=== PATIENT | male | born 1965 ===

== ENCOUNTER 2022-04-04 19:20 | Emergency (ER) | payer SELFPAY ==
[2022-04-04 19:40] VITALS: BP 142/82; PULSE 69; RESP 18; TEMP 36.3; O2SAT 97
--- NOTE | 2022-04-04 20:03 | ED.GENADULT ---
HPI - General Adult General Chief complaint: Back Injury/Pain Stated complaint: Side and back pain Time Seen by Provider: 04/04/22 19:24 Source: patient Mode of arrival: ambulatory Limitations: no limitations History of Present Illness HPI narrative: 56-year-old male coming in today complaining of low back pain for about a month. He was seen in urgent care on the 28 of February with similar symptoms. He states that they did x-rays then which were normal. He states that the pain continues it is worse on the left side than on the right. Activity makes it worse rest makes it better. He denies any nausea vomiting, fevers or chills. He has not been losing weight. He denies any focal neurologic deficits. He has been taking Tylenol and ibuprofen as needed which do help. He also received Flexeril month ago which appear to help as well. His symptoms got worse 2 days ago after he was working on a car. He also complains sometimes of neck pain that comes and goes, bilateral shoulder pain that comes and goes abdominal pain that comes and goes. Nothing is consistent. And again he did have workup for the exact same symptoms a month ago. He has not followed up with his primary care provider. He is requesting another prescription for muscle relaxer today. Related Data Home Medications Medication Instructions Recorded Confirmed aspirin 81 mg tablet,delayed 162 mg PO Q8H PRN 04/04/22 04/04/22 release (Adult Low Dose Aspirin) ibuprofen 200 mg tablet 400 mg PO Q6-8H PRN 04/04/22 04/04/22 Previous Rx's Medication Instructions Recorded cyclobenzaprine 10 mg tablet 10 mg PO Q8H #15 tabs 04/04/22 Allergies Allergy/AdvReac Type Severity Reaction Status Date / Time Penicillins Allergy Intermediate Dizziness Verified 04/04/22 19:38 Review of Systems Status of ROS: Reports: 10 or more systems reviewed and unremarkable except as noted in History and below [facility] Medical History Colitis Diverticulitis H/O back injury Exam Narrative: Exam Narrative: Well-nourished well-developed patient in no acute distress. Alert and oriented. Answers questions appropriately. Mood and affect are appropriate. Thoughts are goal oriented and rational. No tangential or magical thinking noted. Patient speaks in full sentences without needing to catch their breath. HEENT: Normocephalic atraumatic. Pupils are equally round reactive to light. Extraocular muscles are intact. Conjunctivae are moist without any icterus noted. Moist mucous membranes. Posterior pharynx is normal. Neck is soft without any lymphadenopathy or thyromegaly. No masses are appreciated. Cardiovascular: Heart is regular rate and rhythm S1 and S2 are present without any murmurs. Lungs: Clear to auscultation bilaterally no wheezes rhonchi or rales are appreciated. Patient takes deep breaths without any discomfort. Abdomen: Soft and nontender nondistended with normal bowel sounds. No guarding or rebound. No masses or organomegaly appreciated. Extremities: Bilateral lower extremities are without edema. Normal DP and PT pulses. Skin: Well perfused without any obvious rashes. Back: Well appearance. Mild tenderness on the left paraspinal musculature of the lumbar spine. No other abnormalities noted. Strength is 5/5 of the upper and lower extremities. Cranial nerves 3-12 are normal. There is no nystagmus either horizontally or vertically. Gait is normal. Const: Vital Signs, click to edit/add: Vital Signs - 24 hr 04/04/22 19:40 Temperature 97.3 F L Pulse Rate [Left P ulse Oximeter] 69 Respiratory Rate 18 Blood Pressure [Ri ght Upper Arm] 142/82 H Pulse Oximetry 97 Oxygen Delivery Me thod Room Air Course Vital Signs Vital signs: Initial Vital Signs Temperature 97.3 F L 04/04/22 19:40 Temperature Source Temporal Artery Scan 04/04/22 19:40 Pulse Rate 69 04/04/22 19:40 Pulse Rhythm 04/04/22 19:40 Respiratory Rate 18 04/04/22 19:40 Blood Pressure 142/82 H 04/04/22 19:40 Blood Pressure Mean 102 04/04/22 19:40 Blood Pressure Position Semi-Fowlers 04/04/22 19:40 Pulse Oximetry 97 04/04/22 19:40 Oxygen Delivery Method 04/04/22 19:40 Vital Signs Temperature 97.3 F L 04/04/22 19:40 Pulse Rate 69 04/04/22 19:40 Respiratory Rate 18 04/04/22 19:40 Blood Pressure 142/82 H 04/04/22 19:40 Pulse Oximetry 97 04/04/22 19:40 Oxygen Delivery Method 04/04/22 19:40 Temperature 97.3 F L 04/04/22 19:40 Pulse Rate 69 04/04/22 19:40 Respiratory Rate 18 04/04/22 19:40 Blood Pressure 142/82 H 04/04/22 19:40 Pulse Oximetry 97 04/04/22 19:40 Oxygen Delivery Method 04/04/22 19:40 Medical Decision Making MDM Narrative Medical decision making narrative: 56-year-old male with low back pain. We discussed physical therapy, symptomatic treatment reasons for follow-up. We will go ahead and prescribe Flexeril to use as needed. Discussed side effects of this medication. Patient had no other questions. I do recommend he follow up with primary care provider to discuss his many concerns. Medical Records Medical records reviewed: Yes I reviewed the patient's medical records Discharge Plan Discharge Clinical Impression: Low back pain Patient Disposition: Home, Self-Care Condition: Stable Additional Instructions: Follow-up with your primary care provider to discuss your concerns. Okay to continue using ibuprofen/Tylenol as directed and as needed for discomfort. Prescriptions: New cyclobenzaprine 10 mg tablet 10 mg PO Q8H Qty: 15 0RF No Action aspirin [Adult Low Dose Aspirin] 81 mg tablet,delayed release (DR/EC) 162 mg PO Q8H PRN ibuprofen 200 mg tablet 400 mg PO Q6-8H PRN Stand Alone Forms: [employer] Info Instructions
--- OUTSIDE RECORDS SUMMARY | 2022-04-04 20:37 | XMS_ITS | Clinical Summary ---
:1965 Author Organization [employer] [place] [address] Care Team Providers Name Role Phone Pcp, No Primary Care Provider Unavailable Allergies Active Allergy Reactions Severity Noted Date Comments Penicillins Dizziness 02/27/2022 Medications Medication Sig Dispensed Refills Start Date End Date Status cyclobenzaprine Take 0.5-1 30 Tablet 0 02/27/2022 Ac tive (FLEXERIL) 10 mg Tablets (5-10 tabletIndications: Back mg) by mouth pain, unspecified back three times location, unspecified daily. back pain laterality, unspecified chronicity meloxicam (MOBIC) 7.5 Take 1 Tablet 10 Tablet 0 02/28/2022 Active mg tabletIndications: (7.5 mg) by Neck pain mouth once daily. methocarbamoL (ROBAXIN) Take 1 Tablet 21 Tablet 0 02/28/2022 0 03/07/2022 500 mg (500 mg) by tabletIndications: Neck mouth three pain times daily for 7 days. Active Problems Not on file Encounters Date Type Specialty Care Team Description 02/28/2022 Ancillary Procedure 02/28/2022 Ancillary Procedure 02/28/2022 Ancillary Procedure 02/28/2022 Office Visit Ming Samayoa Shoulde r Pain/problem MBBS (Right shoulder pain); Hand Pain/probl em (Right hand pain); Oli t Problem (Bilateral foot pain) 02/27/2022 Office Visit Narinder Torres, Pain (Ri b, back, and PA shoulders) 02/27/2022 Travel from Last 3 Months Social History Tobacco Use Types Packs/Day Years Used Date Never Smoker Smokeless Tobacco: Never Used Sex Assigned at Date Recorded Not on file Obstetrics History Last Filed Vital Signs Vital Sign Reading Time Taken Comments Blood Pressure 107/66 02/28/2022 6:09 PM CDT Pulse 71 02/28/2022 6:09 PM CDT Temperature 36.6 ??C (97.8 ??F) 02/28/2022 6:09 PM CDT Respiratory Rate 16 02/28/2022 6:09 PM CDT Oxygen Saturation 96% 02/28/2022 6:09 PM CDT Inhaled Oxygen Concentration - - Weight - - Height - - Body Mass Index - - Plan of Treatment Health Maintenance Due Date Last Done Comments COVID-19 vaccine series (#1) 1965 Tdap 1974 Depression screening for age 12+ 1975 BMI (ht and wt on same day) for age 18+ 1981 Hepatitis C screening for age 18-79 1981 Tetanus booster 1983 Colonoscopy through age 75 2008 Lipids for age 45-75 2008 Zoster (shingles) series for age 50+ (1 of 2) 2013 Influenza for age 50-64 02/12/2022 Procedures Procedure Name Priority Date/Time Associated Diagnosis Comme nts XR ABDOMEN 2 VIEW STAT 02/28/2022 7:02 PM Abdominal pain, R esults for this FLAT AND UPRIGHT OR CDT unspecified procedur e are in DECUBITUS abdominal location the resul ts section. XR SPINE CERVICAL 3 STAT 02/28/2022 6:56 PM Neck pain Re sults for this VIEWS CDT procedure are i n the results section. XR CHEST 2 VIEWS PA STAT 02/28/2022 6:54 PM Chest wall pain Results for this AND LATERAL CDT procedure are i n the results section. MI ECG ROUTINE ECG Routine 02/27/2022 12:00 AM Back pain, W/LEAST 12 LDS CDT unspecified back W/I&R location, unspecified back pain laterality, unspecified chronicity from Last 3 Months Results XR ABDOMEN 2 VIEW FLAT AND UPRIGHT OR DECUBITUS (02/28/2022 7:02 PM CDT) Anatomical Region Laterality Modality Abdomen Computed Radiography Specimen (Source) Anatomical Collection Method Collection Time Re ceived Time Location / / Volume Laterality 02/28/2022 7:02 PM CDT Impressions 02/28/2022 7:05 PM CDT Negative abdomen. Bowel gas pattern is n ormal. Nothing for obstruction or free air. No evidence for renal stones. Narrative 02/28/2022 7:05 PM CDT For Patients: As a result of the Cures Act, medical imaging exams and procedure reports are released immediately into your [facility] medical record. You may view this report before your referring provider. If you have questions, please contact your health care provider. EXAM: XR ABDOMEN 2 VIEW FLAT AND UPRIGHT OR DECUBITUS LOCATION: [facility] DATE/TIME: 02/28/2022 7:02 PM INDICATION: Abdominal Pain, Unspecified Abdominal Location COMPARISON: None. Procedure Note Gavin Villagran MD - 02/28/2022Fo rmatting of this note might be different from the original. For Patients: As a result of the Cures Act, medical imaging exams and procedure reports are released immediately into your electronic medical record. You may view this report before your referring provider. If you have questions, please contact yo health care provider. EXAM: XR ABDOMEN 2 VIEW FLAT AND UPRIGHT OR DECUBITUS LOCATION: [facility] DATE/TIME: 02/28/2022 7:02 PM INDICATION: Abdominal Pain, Unspecified Abdominal Location COMPARISON: None. IMPRESSION: Negative abdomen. Bowel gas pattern is n ormal. Nothing for obstruction or free air. No evidence for renal stones. [facility] XR SPINE CERVICAL 3 VIEWS (02/28/2022 6:56 PM CDT) Anatomical Region Laterality Modality CERVICAL SPINE Computed Radiography Specimen (Source) Anatomical Collection Method Collection Time Re ceived Time Location / / Volume Laterality 02/28/2022 6:56 PM CDT Impressions 02/28/2022 7:23 PM CDT The odontoid process appears intact. Salty tebral body heights are unremarkable. Mild C5-C6 and C6-C7 retrolisthesis. Sli ght reversal of the normal cervical lordosis. [id number] C5-C6 spondylosis, By intervertebral disc height loss and e ndplate spurring. There is also mild spondylosis at C6-C7 and C4-C5. Prevertebral soft tissues are unremarkab le. The visualized lung apices are well aera aranza. Narrative 02/28/2022 7:23 PM CDT For Patients: As a result of the Cures Act, medical imaging exams and procedure reports are released immediately into your [facility] medical record. You may view this report before your referring provider. If you have questions, please contact your health care provider. EXAM: XR SPINE CERVICAL 3 VIEWS LOCATION: [facility] DATE/TIME: 02/28/2022 6:56 PM INDICATION: Neck Pain COMPARISON: None. TECHNIQUE: CR Cervical Spine. Procedure Note Mckay Camp MD - 02/28/2022For matting of this note might be different from the original. For Patients: As a result of the Cures Act, medical imaging exams and procedure reports are released immediately into your electronic medical record. You may view this report before your referring provider. If you have questions, please contact [facility] health care provider. EXAM: XR SPINE CERVICAL 3 VIEWS LOCATION: [facility] DATE/TIME: 02/28/2022 6:56 PM INDICATION: Neck Pain COMPARISON: None. TECHNIQUE: CR Cervical Spine. IMPRESSION: The odontoid process appears intact. Salty tebral body heights are unremarkable. Mild C5-C6 and C6-C7 retrolisthesis. Sli ght reversal of the normal cervical lordosis. Oxka-wj-[id number] C5-C6 spondylosis, By intervertebral disc height loss and e ndplate spurring. There is also mild spondylosis at C6-C7 and C4-C5. Prevertebral soft tissues are unremarkab le. The visualized lung apices are well aera aranza. [facility] XR CHEST 2 VIEWS PA AND LATERAL (02/28/2022 6:54 PM CDT) Anatomical Region Laterality Modality CHEST, THORAX, Lung, HEART Computed Radi ography Specimen (Source) Anatomical Collection Method Collection Time Re ceived Time Location / / Volume Laterality 02/28/2022 6:54 PM CDT Impressions 02/28/2022 7:03 PM CDT Negative chest. Narrative 02/28/2022 7:03 PM CDT For Patients: As a result of the Cures Act, medical imaging exams and procedure reports are released immediately into your [facility] medical record. You may view this report before your referring provider. If you have questions, please contact your health care provider. EXAM: XR CHEST 2 VIEWS PA AND LATERAL LOCATION: [facility] DATE/TIME: 02/28/2022 6:54 PM INDICATION: Chest Wall Pain COMPARISON: None. Procedure Note Mamta Weathers MD - 02/28/2022Forma tting of this note might be different from the original. For Patients: As a result of the ntury Cures Act, medical imaging exams and procedure reports are released immediately into your electronic medical record. You may view this report before your referring provider. If you have questions, please contact [facility] health care provider. EXAM: XR CHEST 2 VIEWS PA AND LATERAL LOCATION: [facility] DATE/TIME: 02/28/2022 6:54 PM INDICATION: Chest Wall Pain COMPARISON: None. IMPRESSION: Negative chest. [facility] MI ECG ROUTINE ECG W/LEAST 12 LDS W/I&R (02/27/2022 12:00 AM CDT) Narrative This result has an attachment that is no t available. 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
== END 2022-04-04 20:53 | disposition home or self-care (01) ==
LOC: ED 20:34
PROVIDERS: Emergency Provider Family Medicine
DX: M54.50 Low back pain, unspecified (principal)
CPT/HCPCS: 99283